=== PATIENT | female | born 2000 | race Asian ===

== ENCOUNTER 2020-11-30 13:54 | Emergency (ER) | payer OTHER, SELFPAY ==
[2020-11-30 14:06] VITALS: BP 118/61; PULSE 100; RESP 18; TEMP 36.8; O2SAT 99; BMI 21.2
--- NOTE | 2020-11-30 14:09 | ED.ALLEREA ---
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) Exposure: unknown Symptoms: rash, itching, facial swelling, lip swelling, difficulty swallowing, difficulty breathing and tongue swelling Severity: severe Treatment prior to arrival: epinephrine Previous Allergic Reaction History: none Related Data Previous Rx's Medication Instructions Recorded epinephrine 0.3 mg IM Q10M PRN #2 ea 11/30/20 prednisone 40 mg PO DAILY 3 Days #6 tab 11/30/20 Allergies Allergy/AdvReac Type Severity Reaction Status Date / Time No Known Allergies Allergy Verified 11/30/20 14:04 Review of Systems Review of Systems: Constitutional : No Fever, No Chills ENT/Mouth : positive oral swelling, No Hoarseness, No Swallowing Difficulty Eyes: No Eye Pain, No Swelling, No Redness Cardiovascular : No Chest Pain, No SOB Respiratory : No Cough, No Sputum, No Wheezing, No Smoke Exposure, No Dyspnea Gastrointestinal : No Nausea, No Vomiting, No Diarrhea, No abdominal Pain Genitourinary : No Dysuria, No Urinary Frequency, No Hematuria Musculoskeletal : No joint pain, No Myalgias, No Joint Swelling Skin : No Skin Lesions, positive rash Neuro : No Weakness, No Numbness, No Headache Psych : No Anxiety/Panic, No Depression Heme/Lymph: No Bruising, No Lymphadenopathy Endocrine : No Polyuria, No Polydipsia All other systems reviewed and are negative [facility] Past Medical History Attestation statement: The following information was validated with the patient. Medical History Patient denies medical problems Social History Social History (Updated 11/30/20 @ 14:19 by Angelique Duncan DO) Alcohol intake: never Smoking Status: Never smoker Use of substances other than those prescribed or required for medical reasons: Yes Substance Use Type: Marijuana Substance Use Frequency: Occasionally Advance Directives: No Advance Directives Information Provided: No Physical Exam Vital Signs: Vital Signs: Last Vital Signs Temp 99.1 F 11/30/20 16:03 Pulse 79 11/30/20 16:03 Resp 17 11/30/20 16:03 BP 99/54 L 11/30/20 16:03 Pulse Ox 98 11/30/20 16:03 Body Mass Index 21.2 Appearance: Alert. Oriented X3. No acute distress. Eyes: Pupils equal, round and reactive to light. ENT: Pharynx normal. swelling mild periorbital upper and lower lips no intra oral swelling Neck: Normal inspection. Neck supple. CVS: tachy heart rate and rhythm. Pulses normal. Respiratory: No respiratory distress. Breath sounds normal. no stridor, no wheezing Abdomen: Soft and nontender. Skin: erythema and hives on chest. Normal skin color. Normal skin turgor. Extremities: No lower extremity edema. No calf ttp Neuro: Oriented X 3. No motor deficit. No sensory deficit. Course Course Course Narrative: symptoms all resolved, stable for DC obs x 2 hours MDM - Allergic Reaction MDM Narrative Medical decision making narrative: 20 yo female no PMH no known prior allergic reaction c/o hives, facial swelling, dyspnea given IM epi by school RN, will give steroids, pepcid, benadryl and reassess, dispo per workup and observation, patient cannot elicic precipitating event Discharge Plan Discharge Clinical Impression: Anaphylaxis Qualifiers: Encounter type: initial encounter Qualified Code(s): T78.2XXA - Anaphylactic shock, unspecified, initial encounter Patient Disposition: Home, Self-Care Instructions: Anaphylaxis (ED) Additional Instructions: return to ED for any worsening symptoms or concerns Prescriptions: New prednisone 20 mg tablet 40 mg PO DAILY 3 Days Qty: 6 RF: 0 epinephrine 0.3 mg/0.3 mL auto-injector 0.3 mg IM Q10M PRN (Reason: anaphylaxis) Qty: 2 RF: 0 Stand Alone Forms: Work/School Release
[2020-11-30] MEDS: methylPREDNISolone Sod Succ/PF 125 MG/2 ML VIAL IVPUSH (14:11)
[2020-11-30] MEDS: Famotidine/PF 20 MG/2 ML VIAL IVPUSH (14:12)
[2020-11-30] MEDS: diphenhydrAMINE HCL 50 MG/ML VIAL 25 MG IVPUSH (14:12)
--- NOTE | 2020-11-30 15:03 | PC.NURSE ---
pt father updated via telephone w permission from pt. pt offers no new complaints, resting comfortably in stretcher, rr even/unlabored.
[2020-11-30 15:07] VITALS: BP 119/75; PULSE 102; RESP 18; O2SAT 99
[2020-11-30 16:03] VITALS: BP 99/54; PULSE 79; RESP 17; TEMP 37.3; O2SAT 98
== END 2020-11-30 17:11 | disposition home or self-care (01) ==
PROVIDERS: Emergency Provider Emergency Medicine
DX: T78.2XXA Anaphylactic shock, unspecified, initial encounter (principal); X58.XXXA Exposure to other specified factors, initial encounter
CPT/HCPCS: 96374; 96375; 99284; J1200; J2930